=== PATIENT | female | born 1935 | race American Indian/Alaskan Native ===

== ENCOUNTER 2024-03-22 10:27 | Inpatient (IN) | payer MEDICARE, OTHER ==
[~2024-03-22] VITALS: Ht 149.9 cm; Wt 55.3 kg
[~2024-03-22 10:27] MED LIST: BP MED; CHOLESTEROL MED; CIPRO500 MG PO; METFORMIN HCL500 MG PO; NORCO 5-325 TA1 EACH PO
[2024-03-22] MEDS ORDERED: GABAPENTIN100 MG PO (10:47)
[2024-03-22] MEDS ORDERED: JARDIANCE10 MG PO (10:47)
[2024-03-22] MEDS ORDERED: CARVEDILOL6.25 MG PO (10:47)
[2024-03-22] MEDS ORDERED: AMLODIPINE BESY10 MG PO (10:47)
[2024-03-22] MEDS ORDERED: LATANOPROST2.5 ML OU (10:48)
[2024-03-22] MEDS ORDERED: LOSARTAN POTAS100 MG PO (10:48)
[2024-03-22 10:57] LABS: BASOPHILS 0.5 % (0-2); EOSINOPHILS 1.3 % (0-6); HEMATOCRIT 35.9 % (35.0-50.0); HEMOGLOBIN 11.9 g/dL (12.0-18.0); LYMPHOCYTES 2.9 % (24-44); MCH 29.1 (27-36); MCHC 33.2 g/dl (30-36); MCV 87.7 fl (81-99); MONOCYTES 2.9 % (0-12); NEUTROPHILS 92.4 % (39-80); PLATELET COUNT 300 K/uL (140-440); RDW 13.4 (10.5-15.0)
[2024-03-22] MEDS ORDERED: CEFTRIAXONE/SODIUM CHLORIDE 2 GM/100 ML PIGGYBACK IV ONE (11:00)
[2024-03-22] MEDS ORDERED: LACTATED RINGER'S 1,000 ML IV PRN (11:00)
[2024-03-22 11:08] LABS: INR 0.97 (0.80-1.30); PROTIME 12.2 Sec (11.2-14.2)
[2024-03-22 11:13] LABS: ALBUMIN 3.3 g/dL (3.4-5.0); ALBUMIN/GLOBULIN RATIO 0.83 (1.1-2.4); ANION GAP 14.5 (7-21); BILIRUBIN, TOTAL 0.8 ng/dL (0.2-1.0); BUN/CREATININE RATIO 12.67 (6.0-28.6); CALCIUM 8.5 mg/dL (8.5-10.1); CREATININE, SERUM 1.42 mg/dL (0.55-1.02); POTASSIUM 3.5 mmol/L (3.5-5.1); PROTEIN, TOTAL 7.3 g/dL (6.4-8.2)
[2024-03-22 11:17] LABS: LACTIC ACID, BLOOD 2.4 mmol/L (0.4-2.0)
[2024-03-22] MEDS ORDERED: ACETAMINOPHEN 500 MG TAB PO ONE (12:30)
[2024-03-22 12:36] LABS: BILIRUBIN, URINE NEGATIVE (negative); BLOOD/HGB, URINE TRACE-I (Negative); KETONE, URINE NEGATIVE (Negative); LEUK ESTERASE, URINE NEGATIVE (negative); NITRITE, URINE NEGATIVE (negative); PH, URINE 5.5 (5-7)
[2024-03-22 12:45] LABS: BACTERIA, URINE 4+ /hpf (negative); CASTS, URINE NONE SEEN \\lpf; COLLECTION TYPE, URINE CLEAN CATCH; CRYSTALS, URINE NONE SEEN (0-1+); EPITHELIAL CELLS, URINE SQUAMOUS 1+ /lpf (0-1+); REFLEX CULTURE, URINE Yes (No)
[2024-03-22 13:09] LABS: INFLUENZA B NAA NEGATIVE (NEGATIVE); RESPIRATORY SYNCYTIAL VIR NAA NEGATIVE (NEGATIVE)
[2024-03-22] MEDS ORDERED: DEXAMETHASONE SOD PHOS 10 MG/ML VIAL IV ONE (14:15)
[2024-03-22] MEDS ORDERED: DEXTROSE 5% 1,000 ML IV PRN (16:30)
[2024-03-22] MEDS ORDERED: IBLOOD GLUCOSE TEST STRIP 1 EA TEST XX PRN (16:30)
[2024-03-22] MEDS ORDERED: GLUCAGON,HUMAN RECOMBINANT 1 MG/ML VIAL SUB-Q PRN (16:30)
[2024-03-22] MEDS ORDERED: ACETAMINOPHEN 500 MG TAB PO PRN (16:30)
[2024-03-22] MEDS ORDERED: ondansetron HCL 4 MG/2 ML VIAL IV PRN (16:30)
[2024-03-22] MEDS ORDERED: DEXTROSE 50% 50 ML SYR IV PRN ×2 (16:30)
[2024-03-22] MEDS ORDERED: INSULIN LISPRO 100 UNIT/ML ML SUB-Q SCH (17:00)
[2024-03-22] MEDS ORDERED: IBLOOD GLUCOSE TEST STRIP 1 EA TEST VI SCH (17:00)
[2024-03-22 17:07] VITALS: BP 145/54
[2024-03-22] MEDS ORDERED: GABAPENTIN 100 MG CAP PO PRN (17:30)
--- NOTE | 2024-03-22 19:37 | NUR ---
REPORT RECEIVED FROM DAY RN. PATIENT RESTING IN BED WITH EYES CLOSED. AWAKENS TO VERBAL STIMULI. DENIES ANY NEEDS AT THIS TIME. BED ALARM WELT RANDER LIGHT WITHIN REACH.
[2024-03-22 20:08] VITALS: BP 127/52
--- NOTE | 2024-03-22 20:28 | NUR ---
PATIENT RESTING IN BED WITH EYES CLOSED. VSS AFEBRILE AT THIS TIME. HS BLOOD SUGAR COMPLETED HS INSULIN ADMINISTEREDCTA DIM IN BASES. BOWEL TONES ACTIVE X4. PATIENT DENIES ANY PAIN AT THIS TIME. FRESH ICE WATER GIVEN. IVF STARTED. IV SITE PATENT. PATIENT ALERT ANF ORITENTED X 4, HOWEVER IS VERY DROWSY AT THIS TIME AND DOES NOT HOLD ATTENTION LONG BEFORE FALLING ASLEEP. BED ALARM ON, CALL LIGHT WITHIN REACH.
--- NOTE | 2024-03-22 20:30 | NUR ---
DR CORNEJO AT NURSES STATION. QUESTIONED IF PT SHOULD HAVE IV FLUIDS, HE AGREED. VO RECEIVED. FLUIDS INFUSING PER PRIMARY RN.
[2024-03-22] MEDS ORDERED: MELATONIN 3 MG TAB PO PRN (21:00)
--- NOTE | 2024-03-22 23:00 | NUR ---
PATIENT RESTING IN BED WITH EYES CLOSED. RESPIRATIONS EVEN AND UNLABORED. IVF INFUSING WITH NO ISSUES OR CONCERNS. CALL LIGHT WITHIN REACH. BED ALARM ON.
[2024-03-23] VITALS (9 sets, daily range): BP systolic 130–181; BP diastolic 59–91
[2024-03-23] MEDS ORDERED: LACTATED RINGER'S 1,000 ML IV SCH (01:15)
--- NOTE | 2024-03-23 01:30 | NUR ---
PATIENT AMBULATED TO BATHROOM. TOLLERATED WELL. VOIDING QUANITY SUFFICIENT. NO C/O BURNING DURING URINATION. URINE YELLOW IN COLOR. PATIENT MORE AWAKE AND QUICKLY RESPONDS ANSWERING QUESTIONS WNL. PATIENT BACK IN BED, VSS. AFEBRILE. IV FLUIDS RUNNING WITH NO ISSUES OR CONCERNS. IV SITE REMAINS PATENT. CALL LIGHT WITHIN REACH, BED ALARM ON.
--- NOTE | 2024-03-23 03:30 | NUR ---
PATIENT RESTING IN BED WITH EYES CLOSED. RESPIRATIONS EVEN AND UNLABORED. IVF INFUSING WITH NO ISSUES OR CONCERNS. BED ALARM ON. CALL LIGHT WITHIN REACH.
[2024-03-23 05:36] LABS: BASOPHILS 0.1 % (0-2); HEMATOCRIT 31.1 % (35.0-50.0); HEMOGLOBIN 10.3 g/dL (12.0-18.0); LYMPHOCYTES 4.6 % (24-44); MCH 29.1 (27-36); MONOCYTES 0.9 % (0-12); NEUTROPHILS 94.4 % (39-80); PLATELET COUNT 272 K/uL (140-440); RBC 3.53 M/ul (4.3-5.7); RDW 13.7 (10.5-15.0)
[2024-03-23 05:46] LABS: ANION GAP 13.5 (7-21); BUN/CREATININE RATIO 16.17 (6.0-28.6); CALCIUM 8.3 mg/dL (8.5-10.1); CREATININE, SERUM 1.36 mg/dL (0.55-1.02); MAGNESIUM 1.8 mg/dL (1.8-2.4); POTASSIUM 3.5 mmol/L (3.5-5.1)
--- NOTE | 2024-03-23 06:00 | NUR ---
PATIENT OUT OF BED AMBULATED TO BATHROOM WITH 1 PA STAND BY ASSIST. TOLLERATED WELL. VOIDING QUANITY SUFFICIENT. DENIES ANY PAIN AT THIS TIME. IV FLUIDS INFUSING WITH NO ISSUES OR CONCERNS. PATIENT REQUESTING JUIOCE. JUICE GIVEN. VSS. AFEBRILE. NO FURTHER NEEDS. PATIENT BACK IN BED. CALL LIGHT WITHIN REACH. BED ALARM ON.
[2024-03-23] MEDS ORDERED: SELENIUM SULFI120 M1 TOP (07:45)
--- NOTE | 2024-03-23 07:51 | NUR ---
RECIEVED SHIFT REPORT. PT IS RESTING IN BED, EYES CLOSED BREATHING EVEN AND UNLABORED. CALL LIGHT IN REACH.
--- NOTE | 2024-03-23 08:25 | NUR ---
IN ROOM WITH RUSLAN MONDRAGON TO ROUND ON PATIENT AND ADMINISTER MEDICATIONS, SEE MAR. ASSESSED VITALS PRIOR TO MEDICATION ADMINISTRATION, SEE VITALS. PATIENT SITTING ON THE EDGE OF THE BED EATING BREAKFAST. PATIENT ON THE PHONE WITH DAUGHTER, ARMAAN. PATIENT REQUESTED RN TO SPEAK WITH DAUGHTER. RUSLAN MONDRAGON SPOKE WITH DAUGHTER PER PATIENT'S REQUEST. PATIENT HAS HEARING AIDS IN ROOM, HOWEVER, THERE IS NO DRIP MOLDER PRESENT AND THE HEARING AIDS ARE OUT OF BATTERY. PATIENT HAS DIFFICULTY UNDERSTANDING WHAT IS BEING SAID WITHOUT HEARING AIDS. ICE WATER PROVIDED, CALL LIGHT IN REACH, BED ALARM ON. PATIENT DENIES ADDITIONAL NEEDS AT THIS TIME.
--- NOTE | 2024-03-23 08:25 | NUR ---
MORNING ASSESSMENT COMPLETE. PT IS AWAKE, SITTING ON THE SIDE OF THE BED EATING BREAKFAST. DENIES PAIN. DENIES SOB, WHEEZE HEARD IN RLL, CLEAR IN RUL, TEDDY, LLL. DAUGHTER ON PHONE UPDATED BY THIS NURSE ON PT POC. DENIES NEEDS. CALL LIGHT IN REACH.
[2024-03-23] MEDS ORDERED: AMLODIPINE BESYLATE 10 MG TAB PO SCH (09:00)
[2024-03-23] MEDS ORDERED: carvediloL 6.25 MG TAB PO SCH ×2 (09:00)
[2024-03-23] MEDS ORDERED: PHARMACY RENAL DOSE ADJUSTMENT 1 DOSE MISC PO SCH (12:00)
--- NOTE | 2024-03-23 15:43 | NUR ---
PATIENT IN BED AT THIS TIME. MILL TENDER ASSISTED PATIENT TO BATHROOM. CALL LIGHT WITHIN REACH, NO FURTHER NEEDS AT THIS TIME.
[2024-03-23] MEDS ORDERED: LOSARTAN POTASSIUM 100 MG TAB PO SCH (15:51)
[2024-03-23] MEDS ORDERED: CEFTRIAXONE/SODIUM CHLORIDE 2 GM/100 ML PIGGYBACK IV SCH (18:57)
--- NOTE | 2024-03-23 19:42 | NUR ---
REPORT RECEIVED FROM RUSLAN MONDRAGON. pt RESTING IN BED ON CELL PHONE. PO FLUID PROVIDED PER REQUEST. CALL LIGHT IN REACH. BED ALARM ON.
--- NOTE | 2024-03-23 20:59 | EKG ---
[facility] [address] [place], [place] [address] Signed Sinus tachycardia Minimal voltage criteria for LVH, may be normal variant ( [place] product ) Possible Inferior infarct , age undetermined ST \T\ T wave abnormality, consider anterolateral ischemia Abnormal ECG No previous ECGs available Confirmed by Shanta Cornejo MD ([id number]) on 03/23/2024 8:58:43 PM Electronically Signed By: SHANTA CORNEJO DO 03/23/242058 PATIENT NAME: LUIS GOVEA Electrocardiogram DATE OF : [birth year] PHYSICIAN: SHANTA CORNEJO DO REPORT #: [id number] REPORT IS CONFIDENTIAL AND NOT TO BE RELEASED WITHOUT AUTHORIZATION
[2024-03-23] MEDS ORDERED: HEParin SOD (PORCINE) 5,000 UNIT/ML SDV SUB-Q SCH (21:00)
--- NOTE | 2024-03-23 21:20 | NUR ---
pt AWAKE RESTING IN BED, ASSESSMENT COMPLETE. pt COMPAINS OF NEUROPATHY IN FEET, PRN MEDICATION ADMINISTERED. EDUCATION PROVIDED. pt DENIES PAIN OR NAUSEA. IV INFILTRATED IN LEFT AC, NEW IV STARTED LEFT FOREARM AND RIGHT FOREARM WNL, IV ANTIBIOTIC AND IVF INFUSING IN SEPARATE IV SITES. SBA TO RESTROOM FOR VOID AND TO REMOVE DENTURES. BACK IN BED, CALL LIGHT AND PERSONAL SUPPLIES IN REACH. BED ALARM ON.
--- NOTE | 2024-03-23 22:20 | NUR ---
HEARD IV ALARMING. NOTED LEFT FORARM WITH SWELLING ABOVE THE IV SITE. PUMPED SHUT OFF, IV DC'D. FLUIDS NOW INFUSING INTO THE RIGHT FA IV.
[2024-03-24] VITALS (8 sets, daily range): BP systolic 152–168; BP diastolic 57–67
--- NOTE | 2024-03-24 00:14 | NUR ---
CHECKED ON pt. RESTING IN BED WITH EYES CLOSED. BREATHING UNLABORED. NO DISTRESS NOTED.
--- NOTE | 2024-03-24 02:39 | NUR ---
IV PUMP ALARMING, NEW BAG IVF INFUSING WNL. pt RESTING IN BED WITH EYES CLOSED. NO DISTRESS NOTED. BED ALARM ON.
[2024-03-24 05:35] LABS: BASOPHILS 0.1 % (0-2); HEMATOCRIT 30.3 % (35.0-50.0); HEMOGLOBIN 10.2 g/dL (12.0-18.0); LYMPHOCYTES 5.5 % (24-44); MCH 29.7 (27-36); MCHC 33.6 g/dl (30-36); MCV 88.3 fl (81-99); MONOCYTES 2.2 % (0-12); NEUTROPHILS 92.2 % (39-80); PLATELET COUNT 266 K/uL (140-440); RBC 3.43 M/ul (4.3-5.7); RDW 13.7 (10.5-15.0)
--- NOTE | 2024-03-24 05:44 | NUR ---
PT CALLED, INDEPENDENT OUT OF BED, AMBULATION SBA WITH CANE. VOIDED, BACK TO BED, FRESH ICE WATER, ORANGE JUICE GIVEN. STATES SHE WAS SLEEPING SO GOOD, THEN HAD THAT POKE (BLOOD DRAW). PRIMARY RN IN ROOM. WHITE BOARD UPDATED.
--- NOTE | 2024-03-24 05:45 | NUR ---
pt BACK IN BED AFTER VOID. ASSESSMENT COMPLETE. pt DENIES PAIN. DENIES NAUSEA. BREAKFAST ORDER PLACED. CALL LIGHT IN REACH, ALARM ON.
[2024-03-24 05:52] LABS: ANION GAP 11.6 (7-21); BUN/CREATININE RATIO 21.77 (6.0-28.6); CALCIUM 7.9 mg/dL (8.5-10.1); CREATININE, SERUM 1.24 mg/dL (0.55-1.02); POTASSIUM 3.6 mmol/L (3.5-5.1)
--- NOTE | 2024-03-24 07:13 | NUR ---
REPORT FROM NORMAN MERCER.
--- NOTE | 2024-03-24 07:55 | NUR ---
UR CLINICAL REVIEW: 2 MN FOR [facility]ERSAL[facility] INPT CRITERIA MEDICARE INPT 03/22/24 @ 1627 ORDER MATCHES REG NO AUTH REQUIRED PER MEDICARE GUIDELINES DISCHARGE TO HOME WHEN STABLE DISCHARGE IN 24-48 HOURS
--- NOTE | 2024-03-24 08:53 | NUR ---
MORNING ASSESSMENT COMPLETE. PATIENT IS SITTING UP AT BEDSIDE, ATE 80% OF BREAKFAST AND DENIES NAUSEA. PATIENT REPORTS MILD LEG DISCOMFORT AND GIVEN GABAPENTIN AND TYLENOL WITH HER MORNING MEDICATIONS. PATIENT HAS CLEAR LUNGS AND IS ON ROOM AIR. 5UNITS OF SQ INSULIN GIVEN FOR BG OF 201 THIS MORNING. IV ROCEPHIN IS INFUSING FOR 30 MINUTES. NO OTHER NEEDS AT THIS TIME.
--- NOTE | 2024-03-24 09:07 | NUR ---
BRUSHED PATIENT'S DENTURES. SHE WASHED HER OWN FACE AND PUT LOTION ON HER FACE. PATIENT ATE HER BREAKFAST UP ON THE SIDE OF HER BED.
--- NOTE | 2024-03-24 09:44 | NUR ---
IV ANTIBIOTICS ARE COMPLETE. PATIENT IS RESTING IN BED, DENIES NEEDS.
--- NOTE | 2024-03-24 09:51 | NUR ---
In to see patient and discuss IMM letter in anticipation of discharge in the next 48 hours. Barbra is awake and alert, watching t.v. and interacting with her cell phone. She is oriented to person, place and time. We did discuss her potential discharge within the next 48 hours. She verbalized that she desires to discharge to home, states she lives alone, and is comfortable with a discharge plan to home independantly. She also shares that she lives in [facility], and that she will need to contact someone to arrange a ride when she is closer to discharge. When asked about her care she stated "My care has been very good." She states no questions or concerns at this time. She did sign her IMM letter and she was given a copy of her signed IMM letter.
--- NOTE | 2024-03-24 10:30 | NUR ---
Spoke with Barbra. She is from [facility] and was here [place] [facility] the [facility]. She became ill and was brought to the hospital. She states she lives alone and is independent. She shops, cooks, cleans and drives for herself. Pt has a walker and cane. She would like a wc as she feels she has been needing one for a while for distance. Pt does drive. She states her daughter, Laurie is her healthcare or medical. She has a pcp at [facility]. She also uses their pharmacy. She plans on going home tomorrow. I will order a wc form [facility] at pts request when complete the RX and call her daughter.
--- NOTE | 2024-03-24 11:16 | NUR ---
PATIENT IS RESTING IN BED, NO NEEDS AT THIS TIME.
--- NOTE | 2024-03-24 11:50 | NUR ---
Called and received a return all from pts daughter, Laurie. She will notify [facility] pt is hospitalized. I will contact pts pcp, Dr. Rosales for a fu appt. She request I contact her pts son, Phuc, when pt is discharged and he will pick her up. He lives in [facility] and would like an early heads up. I spoke with Dr. Gill and he plans on dc tomorrow.
--- NOTE | 2024-03-24 12:12 | NUR ---
PATIENT IS UP TO THE CHAIR FOR LUNCH. BED LINENS CHANGED. PATIENT GIVEN 7 UNITS OF INSULIN SQ FOR BG OF 170. NO OTHER NEEDS AT THIS TIME.
--- NOTE | 2024-03-24 13:00 | NUR ---
DR. CORNEJO IN TO SEE PATIENT, NEW BAG OF IVF INFUSING.
--- NOTE | 2024-03-24 14:01 | NUR ---
PATIENT UP TO BATHROOM, HYGIENE DONE, BACK TO RESTING IN BED.
--- NOTE | 2024-03-24 14:23 | NUR ---
Face sheet, rx, H&P, and progress note faxed to [facility] for a wc. Called and requested they deliver first thing in the AM as pt may dc home to [place] tomorrow.
--- NOTE | 2024-03-24 14:53 | NUR ---
AFTER DOING PATIENT'S BLOOD SUGAR CHECK. I ASKED [employer] FOR THREE WARM BLANKETS. PUT ONE ON THE HER CHAIR AND ONE AROUND HER SHOULDERS AND THE LAST ONE COVERED HER UP. THAN HER AND I WALKED TO HER CHAIR. THAN I SET HER UP FOR LUNCH. GOT HER SOME MORE ICE WATER. PATIENT WAS WATCHING TV. BED LINENS CHANGED.
--- NOTE | 2024-03-24 16:22 | NUR ---
PATIENT IS SLEEPING, NO NEEDS AT THIS TIME.
--- NOTE | 2024-03-24 17:00 | NUR ---
PATIENT SLEEPING. WILL GO IN AND GET HER BLOOD SUGAR CHECKED WHEN HER DINNER GETS HERE.
--- NOTE | 2024-03-24 17:45 | NUR ---
PATIENT GIVEN 7UNITS OF INSULIN FOR BG OF 240
--- NOTE | 2024-03-24 19:29 | NUR ---
REPORT RECEIVED FROM DAY SHIFT RN. PT LYING IN BED ALERT AND ORIENTED. WATCHING TV. DENIES NEEDS. WHITE BOARD UPDATED. CALL LIGHT IN REACH.
--- NOTE | 2024-03-24 21:52 | NUR ---
EVENING ASSESSMENT COMPLETE. SCHEDULED MEDS ADMIN PER EMAR. PT DENIES PAIN OR NAUSEA. DENIES SOB. RA. SpO2 99%. LUNGS CLEAR THROUGHOUT. WARM TEA PROVIDED PER REQUEST. WARM BLANKET PROVIDED. PT DENIES QUESTIONS OR CONCERNS. CALL LIGHT IN REACH. BED ALARM FOR SAFETY.
--- NOTE | 2024-03-25 00:19 | NUR ---
PT RESTING IN BED WITH EYES CLOSED. RESPIRATIONS EVEN. CALL LIGHT IN REACH.
--- NOTE | 2024-03-25 01:58 | NUR ---
BED ALARM SOUNDING. PT SBA WITH CANE TO BR TO VOID 900 ML CLEAR YELLOW URINE. GAIT STEADY. PT ABLE TO DO OWN KHAI CARE. AT SINK TO WASH HANDS. BACK TO BED, ZANA WELL. DENIES SOB WITH ACTIVITY. ASSESSMENT COMPLETE. NO FURTHER NEEDS. BED ALARM IN PLACE. CALL LIGHT IN REACH.
--- NOTE | 2024-03-25 05:30 | NUR ---
LAB IN ROOM FOR MORNING DRAW. VS AND I&O OBTAINED. PT UP TO BR WITH MINIMAL SBA AND CANE TO VOID. AT SINK FOR AM CARES. BACK TO BED, ZANA WELL. DENIES SOB WITH ACTIVITY. DENIES PAIN OR NAUSEA. NO FURTHER NEEDS. BED ALARM IN PLACE. CALL LIGHT IN REACH.
[2024-03-25 05:31] VITALS: BP 171/65
[2024-03-25 05:31] LABS: BASOPHILS 0.3 % (0-2); HEMATOCRIT 32.3 % (35.0-50.0); LYMPHOCYTES 7.4 % (24-44); MCH 29.6 (27-36); MONOCYTES 4.1 % (0-12); NEUTROPHILS 88.2 % (39-80); PLATELET COUNT 297 K/uL (140-440); RBC 3.71 M/ul (4.3-5.7); RDW 13.8 (10.5-15.0)
[2024-03-25 05:34] VITALS: BP 171/65
[2024-03-25 05:42] LABS: ANION GAP 12.5 (7-21); BUN/CREATININE RATIO 23.72 (6.0-28.6); CALCIUM 8.3 mg/dL (8.5-10.1); CREATININE, SERUM 1.18 mg/dL (0.55-1.02); POTASSIUM 3.5 mmol/L (3.5-5.1)
--- NOTE | 2024-03-25 08:00 | NUR ---
Yudyed Nyla to check if they received updated note for a wc and if it met Medicare criteria. Received a reply from [facility] and she responded the wc will be delivered before 12n. Updated Dr. Gill.
--- NOTE | 2024-03-25 08:39 | NUR ---
PATIENT SITTING ON SIDE OF BED EATING HER BREAKFAST. ASKED HER IF SHE NEEDED TO BRUSH HER TEETH AND WASH HER FACE. SHE SAID SHE ALREADY DID IT WHEN SHE GOT UP TO THE BATHROOM. SHE ALSO COMBED HER HAIR AND PUT IT UP IN A PONY TAIL.
--- NOTE | 2024-03-25 09:10 | NUR ---
ASSESSMENT COMPLETE - PT RESTING IN BED AFTER EATING BREAKFAST, ON PHONE WITH FAMILY. PT NOT NEEDING 02, NO COUGH NOTED OR SOB. PT DENIES PAIN OR ANY COMPLAINTS. PT UPDATED ON CURRENT PLAN OF CARE TO LIKELY DC HOME. SON AWAITING CALL FROM STAFF WHEN DC ORDER PLACED.
[2024-03-25] MEDS ORDERED: HYDROXYZINE HCL25 MG PO (09:59)
--- NOTE | 2024-03-25 10:30 | NUR ---
PT SALINE LOCKED, SITTING ON EDGE OF BED PREPARING FOR SHOWER WITH ROLLER LEVELER.
[2024-03-25 10:40] VITALS: BP 163/75
--- NOTE | 2024-03-25 11:00 | NUR ---
Spoke with Dr. Gill, updated wc has been delivered. Will notify family they can machine operator picker the pt. Son lives in [facility] and is on his way.
--- NOTE | 2024-03-25 11:00 | NUR ---
SET PATIENT UP FOR SHOWER. WRAPPED HER ARM UP. PATIENT AND I WALKED INTO THE BATHROOM PATIENT SET DOWN ON THE SHOWER CHAIR. CHANGED BED LINENS. DID BLOOD SUGAR CHECK AT 1130.
--- NOTE | 2024-03-25 11:01 | NUR ---
MED REC COMPLETE
[2024-03-25 11:34] VITALS: BP 163/75
[2024-03-25] MEDS ORDERED: DEXAMETHASONE6 MG PO (12:19)
[2024-03-25] MEDS ORDERED: CEFUROXIME500 MG PO (12:20)
--- NOTE | 2024-03-25 12:48 | NUR ---
RN IN ROOM TO ADMINISTER LUNCH INSULIN COVERAGE. PT RESTING IN BED WATCHING TV. KNOWS OF IN HOME PLAN AND IS AGREEABLE. 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
== END 2024-03-25 14:42 | disposition home or self-care (01) | DRG 871 ==
LOC: ED 10:27 → MS 16:28
PROVIDERS: Emergency Medicine; ADMIT Student in an Organized Health Care Education/Training Program; ATTEND Student in an Organized Health Care Education/Training Program
PROC: 3E03329 Introduction of Other Anti-infective into Peripheral Vein, Percutaneous Approach (ICD-10-PCS; principal; 2024-03-22)
PROC: 3E0333Z Introduction of Anti-inflammatory into Peripheral Vein, Percutaneous Approach (ICD-10-PCS; 2024-03-22)
DX: A41.9 Sepsis, unspecified organism (principal); J96.01 Acute respiratory failure with hypoxia; U07.1 COVID-19; N12 Tubulo-interstitial nephritis, not specified as acute or chronic; N17.9 Acute kidney failure, unspecified; I10 Essential (primary) hypertension; M19.90 Unspecified osteoarthritis, unspecified site; E11.42 Type 2 diabetes mellitus with diabetic polyneuropathy; Z98.890 Other specified postprocedural states; Z79.899 Other long term (current) drug therapy
CPT/HCPCS: 36415; 51701; 71045; 71260; 74177; 80048; 80053; 81001; 83605; 83735; 84484; 85025; 85610; 85730; 87040; 87088; 87502; 93005; 93010; 99285-25; A9270; J0696; J1100; J1644; J1815; J7121; J8540; Q9967; U0002